=== PATIENT | female | born 1935 | race Caucasian/White ===

== ENCOUNTER 2018-12-07 02:35 | Emergency (ER) | payer MEDICARE, OTHER ==
[2018-12-07] MEDS ORDERED: cloNIDine 0.1 MG Tab PO ONE (02:51)
[2018-12-07] MEDS ORDERED: GI Cocktail Oral Solution 30 ML PO ONE (02:54)
[2018-12-07] MEDS ORDERED: Ondansetron 4 MG Tab.DIS PO ONE (02:55)
[2018-12-07 03:58] LABS: ANION GAP 14.8 mmol/L (10-20); CHLORIDE,CL 106 mmol/L (98-107); SODIUM,NA 141 mmol/L (136-145)
--- NOTE | 2018-12-07 04:23 | EDM.PDOC ---
ED HPI GENERAL MEDICAL PROBLEM - General Chief Complaint: General Stated Complaint: EPIGASTRIC PAIN, TO LEFT SIDE Time Seen by Provider: 12/07/18 02:51 Source of Information: Reports: Patient History Limitations: Reports: No Limitations - History of Present Illness INITIAL COMMENTS - FREE TEXT/NARRATIVE: Pt woke up with epigastric pain Pain goes around left side to back No fever No N/V/D No dysuria No chest pain Pt has not taken usual meds for several days Onset: Gradual Duration: Hour(s):, Getting Worse Location: Reports: Abdomen Quality: Reports: Ache, Burning Severity: Moderate Associated Symptoms: Reports: No Other Symptoms Epigastric Pain Score (Numeric/FACES): 2 - Related Data Allergies Allergy/AdvReac Type Severity Reaction Status Date / Time No Known Allergies Allergy Verified 12/07/18 02:38 Home Meds: Home Meds Losartan Potassium 1 tab PO DAILY 12/07/18 [History] atorvaSTATin [Lipitor] 40 mg PO BEDTIME 12/07/18 [History] hydroCHLOROthiazide [Hydrochlorothiazide] 1 tab PO DAILY 12/07/18 [History] Past Medical History HEENT History: Reports: Allergic Rhinitis, Cataract Cardiovascular History: Reports: High Cholesterol, Hypertension Social & Family History - Tobacco Use Smoking Status *Q: Never Smoker ED ROS GENERAL - Review of Systems Review Of Systems: See Below Constitutional: Reports: No Symptoms Respiratory: Reports: No Symptoms Cardiovascular: Reports: No Symptoms GI/Abdominal: Reports: Abdominal Pain : Reports: No Symptoms ED EXAM, GENERAL - Physical Exam Exam: See Below Exam Limited By: No Limitations General Appearance: Alert, WD/WN, No Apparent Distress Throat/Mouth: Normal Oropharynx Neck: Supple Respiratory/Chest: Lungs Clear, Normal Breath Sounds, Chest Non-Tender Cardiovascular: Regular Rate, Rhythm GI/Abdominal: Tender, Other (Tender in epigastric area) Back Exam: Normal Inspection Extremities: Normal Inspection Neurological: Alert, Oriented, No Motor/Sensory Deficits Course - Vital Signs Last Recorded V/S: Last Vital Signs Temp 36.2 C 12/07/18 02:38 Pulse 90 12/07/18 03:50 Resp 16 12/07/18 03:50 BP 147/77 H 12/07/18 03:50 Pulse Ox 92 L 12/07/18 03:50 - Orders/Labs/Meds Orders: Active Orders 24 hr Category Date Time Status EKG 12 Lead [EKG Documentation Completion] [RC] STAT Care 12/07/18 02:52 Active Labs: Laboratory Tests 12/07/18 12/07/18 Range/Units 03:28 03:28 WBC 9.1 (4.0-10.0) x10^3/uL RBC 4.34 (4.00-5.50) x10^6/uL Hgb 13.3 (12.0-16.0) g/dL Hct 40.1 (33.0-47.0) % MCV 92.4 (78.0-93.0) fL MCH 30.6 (26.0-32.0) pg MCHC 33.2 (32.0-36.0) g/dL RDW Coeff of Ranjit 13.6 (10.0-15.0) % Plt Count 171 (130-400) x10^3/uL Neut % (Auto) 71.2 (50.0-80.0) % Lymph % (Auto) 15.7 L (25.0-50.0) % [place] % (Auto) 9.7 (2.0-11.0) % Eos % (Auto) 3.0 (0.0-4.0) % Baso % (Auto) 0.4 (0.2-1.2) % Sodium 141 (136-145) mmol/L Potassium 3.8 (3.5-5.1) mmol/L Chloride 106 (98-107) mmol/L Carbon Dioxide 24 (21-32) mmol/L Anion Gap 14.8 (10-20) mmol/L BUN 28 H (7-18) mg/dL Creatinine 0.9 (0.55-1.02) mg/dL Est Cr Clr Drug Dosing TNP Estimated GFR (MDRD) 60 Glucose 149 H (74-106) mg/dL Calcium 8.9 (8.5-10.1) mg/dL Corrected Calcium 9.46 (8.5-10.1) mg/dL Total Bilirubin 0.3 (0.2-1.0) mg/dL AST 17 (15-37) U/L ALT 22 (14-59) U/L Alkaline Phosphatase 89 (46-116) U/L Troponin I < 0.017 (<=0.056) ng/mL Total Protein 7.0 (6.4-8.2) g/dL Albumin 3.3 L (3.4-5.0) g/dL Globulin 3.7 Albumin/Globulin Ratio 0.89 Meds: Medications Discontinued Medications Generic Name Dose Route Start Last Admin Trade Name Santa PRN Reason Stop Dose Admin Al Hydroxide/Mg Hydroxide 30 ml 12/07/18 02:54 12/07/18 03:04 Gi Cocktail PO 12/07/18 02:55 30 ml ONETIME ONE Administration Clonidine HCl 0.1 mg 12/07/18 02:51 12/07/18 03:03 Catapres PO 12/07/18 02:52 0.1 mg ONETIME ONE Administration Ondansetron HCl 4 mg 12/07/18 02:55 12/07/18 03:00 Zofran Odt PO 12/07/18 02:56 4 mg ONETIME ONE Administration - Re-Assessments/Exams Free Text/Narrative Re-Assessment/Exam: 12/07/18 04:22 Pt given Clonidine 0.1 mg with much improved BP Pt given GI Cocktail with resolved epigastric pain Departure - Departure Time of Disposition: 04:30 Disposition: Home, Self-Care 01 Clinical Impression: Epigastric pain Hypertension Qualifiers: Hypertension type: essential hypertension Qualified Code(s): I10 - Essential ( primary) hypertension - Discharge Information *PRESCRIPTION DRUG MONITORING PROGRAM REVIEWED*: Not Applicable *COPY OF PRESCRIPTION DRUG MONITORING REPORT IN PATIENT YARY: Not Applicable Instructions: Hypertension Referrals: PCP,Unobtain [Primary Care Provider] - Additional Instructions: Take usual medications Follow up in clinic - My Orders Last 24 Hours: My Active Orders 12/07/18 02:52 EKG 12 Lead [EKG Documentation Completion] [RC] STAT - Assessment/Plan Last 24 Hours: My Active Orders 12/07/18 02:52 EKG 12 Lead [EKG Documentation Completion] [RC] STAT
== END 2018-12-07 04:33 | disposition home or self-care (01) ==
LOC: VM.ED 02:35
DX: R10.13 Epigastric pain (principal); I10 Essential (primary) hypertension; E78.00 Pure hypercholesterolemia, unspecified; Z79.899 Other long term (current) drug therapy
CPT/HCPCS: 36415; 80053; 84484; 85025; 93005; 99284-25; A9270-GY